=== PATIENT | male | born 1960 | race Caucasian/White ===

== ENCOUNTER 2020-02-09 05:23 | Day surgery (SDC) | payer OTHER ==
[2020-02-06 10:30] LABS: HEMATOCRIT 48.6 % (37.9-51.0); HEMOGLOBIN 16.8 g/dL (13.5-17.0); MEAN CORPUSCULAR HEMOGLOBIN 30.9 pg (27.0-33.4); MEAN CORPUSCULAR HGB CONC 34.6 g/dL (32.0-36.0); MEAN CORPUSCULAR VOLUME 89 fl (80-97); PLATELET COUNT 264 10^3/uL (150-450); RED BLOOD COUNT 5.46 10^6/uL (4.35-5.55); RED CELL DISTRIBUTION WIDTH 14.8 % (11.5-14.0); WHITE BLOOD COUNT 12.6 10^3/uL (4.0-10.5)
[~2020-02-09 05:23] MED LIST: ACETAMINOPHEN 325 MG TABLET PO PRN; LACTATED RINGERS 1000 ML IV PRN; LIDOCAINE 0.5% INJ-PF (5 MG/ML) 50 ML SDV SUBCUT PRN
[2020-02-09] MEDS ORDERED: PROPOFOL INJ 200 MG/20 ML VIAL IV ONE ×2 (06:56→10:36)
--- NOTE | 2020-02-09 08:22 | Operative Report ---
Nonrecallable Operative Report DATE OF SURGERY: 02/09/20 PREOPERATIVE DIAGNOSIS: rectal bleeding. screening colonoscopy POSTOPERATIVE DIAGNOSIS: grade 3 hemorrhoids, nl colonoscopy OPERATION: colonoscopy and hemorrhoidal banding SURGEON: TAMIKO AGRCIA ANESTHESIA: GA TISSUE REMOVED OR ALTERED: none COMPLICATIONS: none ESTIMATED BLOOD LOSS: 200 INTRAOPERATIVE FINDINGS: see note PROCEDURE: Patient brought the operating awake alert stable condition placed in the transport gurney in a left lateral decubitus position and given a local MAC anesthesia. After appropriate timeout site verification the procedure commenced. The Olympus colonoscope was passed into the rectum and easily traversed the rectum to the sigmoid colon up the descending colon to the splenic flexure we were able to traverse the transverse colon to the hepatic flexure and then the cecum. We slowly removed the scope upon slow removal scope for approximately 8- minute. The cecum was visualized as well as the ascending colon appeared to be normal without evidence of polyps hepatic flexure was also visualized as was the transverse colon again without evidence of mucosal abnormalities or polyps as we traversed the splenic flexure and came down the descending colon we noted multiple diverticula. There were no significant polyps to be biopsied. The scope was then slowly withdrawn. The patient was then kept in a left lateral decubitus position for hemorrhoidal banding. The endoscope was passed into the rectum and all 4 quadrants examined. The patient had grade 3 hemorrhoids at 11:00 2:00 and 5:00. Those 3 hemorrhoidal jose were banded with a hemorrhoidal rubber band. This was accomplished above the dentate line. The anoscope was removed which completed the procedure. Findings normal colonoscopy except for diverticulosis. Diverticula mostly located on the left side. Grade 3 hemorrhoids banded x3. The patient was then transferred to recovery room in stable condition.
--- NOTE | 2020-02-09 08:24 | Discharge Summary ---
Discharge Summary (SDC) - Discharge Final Diagnosis: 3 3 hemorrhoids, diverticulosis Date of Surgery: 02/09/20 Discharge Date: 02/09/20 Condition: Good Treatment or Instructions: Patient should continue sitz bath at home for the next 5 to 7 days Referrals: SHAWNA HARRIS FNP-[facility] [Primary Care Provider] - Discharge Diet: As Tolerated Discharge Activity: Activity As Tolerated Report the Following to Your Physician Immediately: Nausea, Vomiting, Increase in Pain, Unusual Bleeding - Patient is to follow-up appointment in surgical clinic in 14 to 21 days
[2020-02-09 09:49] VITALS: BP 146/74
== END 2020-02-09 09:30 | disposition home or self-care (01) ==
LOC: OROUT 05:23
PROVIDERS: ATTEND Surgery
DX: K64.2 Third degree hemorrhoids (principal); K57.30 Diverticulosis of large intestine without perforation or abscess without bleeding; K92.1 Melena; K62.89 Other specified diseases of anus and rectum; M62.9 Disorder of muscle, unspecified; G47.00 Insomnia, unspecified; F17.210 Nicotine dependence, cigarettes, uncomplicated; Z79.899 Other long term (current) drug therapy; Z03.818 Encounter for observation for suspected exposure to other biological agents ruled out
CPT/HCPCS: 45378; 46221; 36415; 85027; 87635; 00811; J2704; C9803; 45380; 811